=== PATIENT | female | born 1950 | race Hispanic/Latino ===

== ENCOUNTER 2024-02-28 10:12 | Emergency (ER) | payer OTHER ==
[~2024-02-28] VITALS: Ht 149.9 cm; Wt 95.3 kg
[2024-02-28 10:32] LABS: BASOPHILS # (AUTO) 0.07 K/uL (0.00-0.20); BASOPHILS % (AUTO) 0.7 % (0.0-5.0); EOSINOPHILS # (AUTO) 0.16 K/uL (0.00-0.70); EOSINOPHILS % (AUTO) 1.5 % (0.0-8.0); HEMATOCRIT 43.6 % (36-48); IMMATURE GRANULOCYTE ABSOLUTE 0.05 K/uL (0-1); LYMPHOCYTES # (AUTO) 2.2 K/uL (1.0-4.8); MEAN CORPUSCULAR HEMOGLOBIN 30.4 pg (27.0-33.0); MONOCYTES # (AUTO) 0.4 K/uL (0.1-1.0); MONOCYTES % (AUTO) 3.9 % (3.0-13.0); NEUTROPHILS # (AUTO) 7.7 K/uL (1.8-7.7); NEUTROPHILS % (AUTO) 72.4 % (40.0-77.0); PLATELET COUNT (AUTO) 241 K/uL (130-400); RED BLOOD CELL COUNT(AUTO) 4.74 MIL/uL (4.00-5.50); RED CELL DISTRIBUTION WIDTH 12.8 % (11.0-15.5); WHITE BLOOD COUNT (AUTO) 10.6 K/uL (4.8-10.8)
[2024-02-28 10:42] LABS: CREATININE 0.7 mg/dL (0.5-1.0); POTASSIUM 4.2 mmol/L (3.5-5.1)
[2024-02-28 10:46] LABS: ALBUMIN 3.3 g/dL (3.5-5.0); BILIRUBIN,TOTAL 0.7 mg/dL (0.2-1.0)
[2024-02-28] MEDS ORDERED: IOHEXOL-350 75 ML VIAL IV ONE (10:55)
[2024-02-28 11:06] LABS: ADD UA MICROSCOPIC YES; APPEARANCE,URINE CLEAR (CLEAR); BILIRUBIN,URINE NEGATIVE (NEGATIVE); COLOR,URINE LIGHT-YELLOW (YELLOW); GLUCOSE, URINE (UA) >=1000 mg/dL (NEGATIVE); KETONES,URINE 40 mg/dL (NEGATIVE); LEUKOCYTE ESTERASE ,URINE NEGATIVE Leu/uL (NEGATIVE); NITRATE,URINE NEGATIVE (NEGATIVE); OCCULT BLOOD,URINE NEGATIVE (NEGATIVE); PROTEIN,URINE NEGATIVE (NEGATIVE); UROBILINOGEN,URINE 0.2 mg/dL (0.2-1.0)
[2024-02-28 11:08] LABS: BACTERIA,URINE RARE /HPF (None Seen); MUCUS,URINE RARE LPF (None Seen); SQUAMOUS EPITHELIAL CELL,UR FEW /HPF (0-2)
[2024-02-28] MEDS: MORPHINE 2 MG SYG IVP STA (12:01)
[2024-02-28] MEDS: FAMOTIDINE 20MG VIAL IV STA (12:01)
[2024-02-28] MEDS: ONDANSETRON 4MG INJ IVP STA (12:01)
[2024-02-28 12:30] VITALS: BP 125/59; PULSE 75; RESP 18; O2SAT 97
== END 2024-02-28 13:09 | disposition home or self-care (01) ==
LOC: EDH 10:12
DX: R10.13 Epigastric pain (principal); I10 Essential (primary) hypertension; E11.9 Type 2 diabetes mellitus without complications; E78.00 Pure hypercholesterolemia, unspecified; K21.9 Gastro-esophageal reflux disease without esophagitis
CPT/HCPCS: 99285; 74177; 96374; 96375; 84484; 80053; 83690; 85025; 81001; 36415; 93005; J3490; J2270; J2405; Q9967

== ENCOUNTER 2024-10-01 13:33 | Emergency (ER) | payer OTHER ==
[~2024-10-01] VITALS: Ht 149.9 cm; Wt 95.3 kg
[2024-10-01 13:52] VITALS: BP 158/70; PULSE 81; RESP 16; TEMP 98.1; O2SAT 98
--- NOTE | 2024-10-01 14:19 | ERN ---
ED Note History of Present Illness Stated Complaint: FLU LIKE SYMPTOMS Chief Complaint: Back Pain-No Injury Time Seen by MD: 13:45 Dictation: Patient comes in with complaint of coughing and congestion for about five days and left mid back pain for three days. In terms of congestion she has had coughing and congestion. No fever. Her had tested positive for influenza. She was seen yesterday and tested negative. She was put on penicillin along with the nasal spray and antihistamine and 5 mg of Flexeril q.h.s.. She has had difficulty with her back. In regards for back pain it is sharp and lasts for a few seconds and elicited by movement. No numbness. It is in the left mid back to the left upper abdomen. No rash. Allergies: Coded Allergies: No Known Allergies (Unverified Allergy, Unknown, 02/28/24) Past Medical History Past Medical History: Diabetes-Type II, High Cholesterol, Hypertension Additional Past Medical Hx: GASTRITIS Surgical History: Other Surgical History Other: HERNIA REPAIR X2 Review of System Dictation Ten systems reviewed and negative except as noted in HPI Initial Vital Sign VS Vital Signs Date Time Temp Pulse Resp B/P (MAP) Pulse Ox O2 Delivery O2 Flow Rate FiO2 10/01/24 13:49 98.8 89 18 158/70 95 10/01/24 13:52 Room Air* 0 21 Physical Exam Dictation GEN: non toxic, NAD HEENT: atrumatic, PERRL, EOMI, conjunctivae normal NECK: Soft supple nontender Heart RRR, no murmurs Chest: No deformity Lungs: Lungs clear to auscultation Ab: Soft nondistended nontender Back: No midline step-offs. No gross deformity. No CVA tenderness. No rash. : m/s: Moving all four extremities. No gross deformity Neuro: CN 2-12 intact. Moving all four extremities. Psych: Cooperative ED Course ED Course Orders Procedure Category Date Status Time Ketorolac 60mg/2ml PHA 10/01/24 Verified (Toradol 60mg/2ml) 14:30 Vital Signs Date Time Temp Pulse Resp B/P (MAP) Pulse Ox O2 Delivery O2 Flow Rate FiO2 10/01/24 13:52 98.8 89 18 158/70 95 Room Air* 0 21 10/01/24 13:49 98.8 89 18 158/70 95 Medical Decision Making MDM I do believe this is likely musculoskeletal in nature. It is elicited by movement and lasts a few seconds and then stops. No rash found. Patient is on sub optimal therapy although understandable given age. She was prescribed 5 mg of Flexeril q.h.s.. I have asked the patient to increase this as needed up to 1-2 tablets up to 3 times per day. I did let her know however that this may increase her fall risk and somnolence. She is aware. She can also start taking two tabs of Tylenol [id number] times a day and two tablets of ibuprofen [id number] 3 times a day. Toradol IM here. Discharged home. DX & DISP Disposition: Discharge Departure Impression: Primary Impression: Mid back pain on left side Additional Impression: Upper respiratory infection Condition: Stable Additional Instructions: You can increase your Flexeril from one tablet at night to 1-2 tablets up to 3 times per day. this may make you sleepy and dizzy. Be careful so that you do not fall. You can take two tablets of Tylenol every 8 hours Take two tablets of ibuprofen every 8 hours Follow up with her primary care physician. Return for any worsening symptoms or other concerns Referrals: FARAZ ESTES MD (PCP) FABIANA BENEDICT MD Oct 01, 2024 14:18
[2024-10-01] MEDS: ketOROlac 60 MG VIAL (30MG/ML) IM ONE (14:27)
== END 2024-10-01 14:51 | disposition home or self-care (01) ==
LOC: EDH 13:33
DX: M54.6 Pain in thoracic spine (principal); J06.9 Acute upper respiratory infection, unspecified; E11.9 Type 2 diabetes mellitus without complications; E78.00 Pure hypercholesterolemia, unspecified; I10 Essential (primary) hypertension; Z98.890 Other specified postprocedural states
CPT/HCPCS: 99283; 96372; J1885

== ENCOUNTER → 2024-10-07 | Outpatient (CLI) | payer OTHER ==
--- NOTE | 2024-10-07 12:40 | HMCIMG ---
LUMBAR SPINE 2-3VWS HISTORY: Low back pain COMPARISON: None FINDINGS: 3 images of lumbar spine were obtained. There are degenerative changes with lumbar spine spondylosis. There is straightening of normal lordotic curvature which may be related to muscle spasm or positioning. No loss of vertebral height is seen. No fracture or dislocation is seen. Degenerative changes are seen. IMPRESSION: 1. No fracture is seen.
--- NOTE | 2024-10-07 12:41 | HMCIMG ---
THORACIC SPINE 3VWS HISTORY: Back pain COMPARISON: None FINDINGS: 2 images of thoracic spine were obtained. Post cholecystectomy changes are seen. There are degenerative changes of spondylosis. There is straightening of normal lordotic curvature which may be related to muscle spasm or positioning. No loss of vertebral height is seen. No fracture or dislocation is seen. Degenerative changes are seen. IMPRESSION: 1. No fracture is seen.
== END | disposition home or self-care (01) ==
LOC: RAH 11:47
PROVIDERS: ATTEND Internal Medicine
DX: M47.814 Spondylosis without myelopathy or radiculopathy, thoracic region (principal); M47.816 Spondylosis without myelopathy or radiculopathy, lumbar region; Z90.49 Acquired absence of other specified parts of digestive tract
CPT/HCPCS: 72072; 72100